=== PATIENT | male | born 1965 | race Caucasian/White ===

== ENCOUNTER 2017-07-04 15:36 | Emergency (ER) | payer BC ==
[~2017-07-04] VITALS: Ht 160 cm; Wt 75.0 kg
[~2017-07-04 15:36] MED LIST: GLUCTAB PO; LISI-360 PO; TYLE3 PO
[2017-07-04 15:40] VITALS: BP 162/87; PULSE 70; RESP 16; TEMP 97.5; O2SAT 97
[2017-07-04] MEDS ORDERED: LISI10TA3 PO (15:48)
[2017-07-04 15:50] VITALS: RESP 17; O2SAT 98
[2017-07-04] MEDS ORDERED: SODIUM CHLORIDE 0.9% FLUSH 10 ML FLUSH IVF PRN (16:00)
[2017-07-04] MEDS ORDERED: ASPIRIN 81 MG CHEW TAB CHEW ONE (16:00)
[2017-07-04 16:05] LABS: AUTOMATED NEUTROPHIL # 3.1 TH/MM3 (1.8-7.7); BASOPHIL % 0.9 % (0.0-2.0); EOSINOPHIL # 0.1 TH/MM3 (0-0.4); EOSINOPHIL % 1.9 % (0.0-4.0); HEMATOCRIT 41.4 % (39.0-51.0); HEMOGLOBIN 14.1 GM/DL (13.0-17.0); LYMPH % 30.1 % (9.0-44.0); LYMPHOCYTE # 1.6 TH/MM3 (1.0-4.8); MEAN CELL VOLUME 85.9 FL (80.0-100.0); MEAN CORPUSCULAR HEMOGLOBIN 29.2 PG (27.0-34.0); MEAN PLATELET VOLUME 7.2 FL (7.0-11.0); MONO % 9.3 % (0.0-8.0); MONOCYTE # 0.5 TH/MM3 (0-0.9); NEUT % 57.8 % (16.0-70.0); PLATELET COUNT 198 TH/MM3 (150-450); RED BLOOD COUNT 4.83 MIL/MM3 (4.50-5.90); RED CELL DISTRIBUTION WIDTH 13.9 % (11.6-17.2); WHITE BLOOD COUNT 5.3 TH/MM3 (4.0-11.0)
--- NOTE | 2017-07-04 16:16 | RADRPT ---
EXAM DATE/TIME: 07/04/2017 15:59 [place] COMPARISON: No previous studies available for comparison. INDICATIONS : Chest pain from increased blood pressure. MEDICAL HISTORY : Hypertension. SURGICAL HISTORY : None. ENCOUNTER: Initial ACUITY: 1 day PAIN SCORE: 3/10 LOCATION: Bilateral chest FINDINGS: Single AP view of the chest. Low lung volumes. Prominence of the central pulmonary vasculature. Patch y opacity at the lung bases may represent vascular crowding or mild pulmonary vascular congestion. Ca rdiomediastinal silhouette within normal limits. No evidence of pleural effusion or pneumothorax. CONCLUSION: Patchy opacity the lung bases may be related to vascular crowding from low lung volumes or mild pulmo nary vascular congestion. Mauro Barbour MD on July 04, 2017 at 16:10 Board Certified Radiologist. This report was verified electronically.
[2017-07-04 16:23] LABS: BICARBONATE 30.1 MEQ/L (21.0-32.0); BLOOD UREA NITROGEN 16 MG/DL (7-18); CALCIUM 8.7 MG/DL (8.5-10.1); CHLORIDE 106 MEQ/L (98-107); CREATININE 0.87 MG/DL (0.60-1.30); GLOMERULAR FILTRATION RATE 91 ML/MIN (>89); GLUCOSE,RANDOM 103 MG/DL (74-106); SODIUM (NA) 141 MEQ/L (136-145)
[2017-07-04 16:26] LABS: TROPONIN I LESS THAN 0.02 NG/ML (0.02-0.05)
--- NOTE | 2017-07-04 16:36 | PD ---
HPI . Dizziness Chief Complaint: Syncope/Near-Syncope Time Seen by Provider: 15:46 Travel History International Travel<30 days: No Contact w/Intl Traveler<30days: No Traveled to known affect area: No History of Present Illness HPI Patient presents with a chief complaint of dizziness. He is brought to us from a psych nurse on the psych floor. He was visiting his there when he developed dizziness. The psych nurse noted an elevated blood pressure and brought the patient to us. Patient reports onset of symptoms at 1:30 PM. He does describe a spinning sensation but does not have exacerbation of symptoms with movement. He denies any associated nausea or shortness of breath. Symptoms are mild. 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) Endocrine Surgery: No Eye Surgery: No Genitourinary Surgery: No Gynecologic Surgery: No Neurologic Surgery: Yes (BRAIN TUMOR REMOVED) Oral Surgery: No Pacemaker: No Thoracic Surgery: No Other Surgery: Yes (RIGHT ANKLE SURGERY DUE TO WORK-RELATED ACCIDENT) Social History Alcohol Use: No Tobacco Use: No Substance Use: No Allergies-Medications (Allergen,Severity, Reaction): Coded Allergies: penicillin G (Verified Allergy, Severe, rash, 07/04/17) Reported Meds & Prescriptions Reported Meds & Active Scripts Active Reported Lisinopril 10 Mg Tab 10 Mg PO DAILY Review of Systems Except as stated in HPI: all other systems reviewed are Neg General / Constitutional: No: Fever, Chills Eyes: No: Diploplia, Blurred Vision HENT: Positive: Vertigo, No: Headaches Cardiovascular: Positive: Chest Pain or Discomfort Respiratory: No: Shortness of Breath Gastrointestinal: No: Nausea Neurologic: Positive: Dizziness Physical Exam Narrative GENERAL: Patient is awake and alert and in no acute distress. SKIN: warm/dry. HEAD: Normocephalic. 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 EYES: Pupils equal and round. No scleral icterus. No injection or drainage. ENT: No nasal bleeding or discharge. Mucous membranes pink and moist. NECK: Trachea midline. Full range of motion without pain.. CARDIOVASCULAR: Regular rate and rhythm. Heart sounds are normal. RESPIRATORY: No accessory muscle use. Clear to auscultation. Breath sounds equal bilaterally. He has scarring on the right chest from his previous plastic surgeries. GASTROINTESTINAL: Abdomen soft. Nontender. Bowel sounds present. Nondistended. MUSCULOSKELETAL: No obvious deformities. NEUROLOGICAL: Awake and alert. No obvious cranial nerve deficits. Motor grossly within normal limits. Normal speech. PSYCHIATRIC: Appropriate mood and affect; insight and judgment normal. Data Data Last Documented VS Vital Signs Date Time Temp Pulse Resp B/P (MAP) Pulse Ox O2 Delivery O2 Flow Rate FiO2 07/04/17 15:50 17 98 Room Air 07/04/17 15:49 68 07/04/17 15:40 97.5 162/87 (112) Orders Orders Electrocardiogram (07/04/17 ) Electrocardiogram (07/04/17 15:49) Basic Metabolic Panel (Bmp) (07/04/17 15:49) Complete Blood Count With Diff (07/04/17 15:49) Troponin I (07/04/17 15:49) Chest, Single Ap (07/04/17 15:49) Ecg Monitoring (07/04/17 15:49) Iv Access Insert/Monitor (07/04/17 15:49) Oximetry (07/04/17 15:49) Sodium Chloride 0.9% Flush (Ns Flush) (07/04/17 16:00) Aspirin Chew (Aspirin Chew) (07/04/17 16:00) Ed Discharge Order (07/04/17 16:32) Labs Laboratory Tests Test 07/04/17 15:33 White Blood Count 5.3 TH/MM3 Red Blood Count 4.83 MIL/MM3 Hemoglobin 14.1 GM/DL Hematocrit 41.4 % Mean Corpuscular Volume 85.9 FL Mean Corpuscular Hemoglobin 29.2 PG Mean Corpuscular Hemoglobin Concent 34.0 % Red Cell Distribution Width 13.9 % Platelet Count 198 TH/MM3 Mean Platelet Volume 7.2 FL Neutrophils (%) (Auto) 57.8 % Lymphocytes (%) (Auto) 30.1 % Monocytes (%) (Auto) 9.3 % Eosinophils (%) (Auto) 1.9 % Basophils (%) (Auto) 0.9 % Neutrophils # (Auto) 3.1 TH/MM3 Lymphocytes # (Auto) 1.6 TH/MM3 Monocytes # (Auto) 0.5 TH/MM3 Eosinophils # (Auto) 0.1 TH/MM3 Basophils # (Auto) 0.0 TH/MM3 CBC Comment DIFF FINAL Differential Comment Blood Urea Nitrogen 16 MG/DL Creatinine 0.87 MG/DL Random Glucose 103 MG/DL Calcium Level 8.7 MG/DL Sodium Level 141 MEQ/L Potassium Level 3.6 MEQ/L Chloride Level 106 MEQ/L Carbon Dioxide Level 30.1 MEQ/L Anion Gap 5 MEQ/L Estimat Glomerular Filtration Rate 91 ML/MIN Troponin I LESS THAN 0.02 NG/ML MDM Medical Decision Making Medical Screen Exam Complete: Yes Emergency Medical Condition: Yes Interpretation(s) EKG shows a normal sinus rhythm with no ischemic changes. Differential Diagnosis Differential diagnosis of dizziness includes but is not limited to vertigo, dehydration, acute blood loss, sepsis, ACS Narrative Course Patient presents with a dizzy spell was started while he was visiting his on the psych unit. He states that he is feeling better. His workup appears negative. CBC & BMP Diagram 07/04/17 15:33 Calcium Level 8.7 trop < 0.02 Last Impressions Chest X-Ray 07/04/17 1549 Signed Impressions: Service Date/Time: Tuesday, July 04, 2017 15:59 - CONCLUSION: Patchy opacity the lung bases may be related to vascular crowding from low lung volumes or mild pulmonary vascular congestion. Mauro Barbour MD Diagnosis Primary Impression: Dizziness Patient Instructions: General Instructions, Dizziness (ED) Departure Forms: Tests/Procedures Disposition: 01 DISCHARGE HOME Condition: Stable Diana Samuel MD Jul 04, 2017 16:36
[2017-07-04 16:40] VITALS: BP 124/78; TEMP 97.7
--- NOTE | 2017-07-05 17:33 | EKG ---
Date Performed: 07/04/2017 Time Performed: 15:54:43 PTAGE: 52 years EKG: Sinus rhythm Since previous tracing, no significant change noted NORMAL ECG PREVIOUS TRACING : 12/26/2003 20.07 DOCTOR: Ale Shah Interpretating Date/Time 07/05/2017 17:32:57
== END 2017-07-04 16:40 | disposition home or self-care (01) ==
LOC: NEPD 15:36
DX: R42 Dizziness and giddiness (principal); I10 Essential (primary) hypertension; E11.9 Type 2 diabetes mellitus without complications; Z85.841 Personal history of malignant neoplasm of brain
CPT/HCPCS: 71010; 80048; 84484; 85025; 93005; 99285